=== PATIENT | female | born 1930 | race Caucasian/White ===

== ENCOUNTER → 2016-08-10 | Outpatient (CLI) | payer MEDICARE ==
[~2016-08-10] MED LIST: ACETAMINOPHEN PO; ALBUTEROL17 GM INH; ANTACID650 MG PO; AZATHIOPRINE50 M1 PO; BENZONATATE PO; CALCIUM + VITAM1 TAB PO; CALCIUM1 TAB.CHEW; CLEOCIN HCL300 M1 PO; FERRO-TIME325 MG PO; FOLIC ACID PO; FOLIC ACID1 MG; HYDROCHLOROTH12.5 M1 PO; LEVAQUIN750 MG PO; LISINOPRIL PO; LISINOPRIL10 MG PO; MULTI-VITAMIN1 EAC1; MULTIPLE VITAMI1 T11 PO; NAMENDA10 MG; PANTOPRAZOLE SO40 MG PO; PLAQUENIL200 MG PO; PREDNISONE PO; PREMARIN PO; SODIUM BICARBO650 MG PO; TRAMADOL HCL50 M2 PO; TYLENOL EXTRA500 M1 PO; TYLENOL325 M1 PO; ZITHROMAX PO; ZITHROMAX1 G/PKT PO; ZOFRANODT PO
[2016-08-10 16:00] LABS: HEMATOCRIT 32.9 % (35.0-45.0); HEMOGLOBIN 11.1 gm/dL (12.0-16.0); MEAN CELL VOLUME 98.9 FL (83-96); MEAN CORPUSCULAR HEMOGLOBIN 33.4 PG (28-34); MEAN CORPUSCULAR HGB CONC 33.8 g/dL (30-36); MEAN PLATELET VOLUME 8.1 FL (6.5-11.5); RED BLOOD COUNT 3.32 X10e (3.90-5.30); RED CELL DISTRIBUTION WIDTH 13.9 % (11.0-15.5); WHITE BLOOD COUNT 6.1 X10e3 (4.0-10.5)
[2016-08-10 16:13] LABS: BILIRUBIN,TOTAL 0.6 mg/dL (0.2-2.0); BUN/CREATININE RATIO 27.5; CALCIUM SERUM 8.5 mg/dL (8.4-10.2); CREATININE SERUM 1.2 mg/dL (0.6-1.4); GLOM FILT RATE Estimated 41.8 mL/min (>60); MAGNESIUM 2.1 mg/dL (1.6-3.0); PHOSPHOROUS 4.1 mg/dL (2.5-4.6); POTASSIUM 4.6 mmol/L (3.5-5.1); PROTEIN TOTAL SERUM 6.8 g/dL (6.0-8.3)
[2016-08-11 00:09] LABS: CREATININE,RANDOM URINE 197 mg/dL; TOTAL PROTEIN,RANDOM URINE 25 mg/dl (<10)
[2016-08-13 12:16] LABS: CALCIUM (PTHINTACT) 9.2 mg/dL (8.6-10.4)
== END | disposition home or self-care (01) ==
LOC: SLAB 15:23
PROVIDERS: Internal Medicine Nephrology
DX: N18.3 Chronic kidney disease, stage 3 (moderate) (principal); D63.1 Anemia in chronic kidney disease
CPT/HCPCS: 36415; 80053; 82310; 82570; 82728; 83540; 83550; 83735; 83970; 84100; 84156; 85027

== ENCOUNTER → 2016-11-18 | Outpatient (CLI) | payer MEDICARE ==
[2016-11-18 13:58] LABS: HEMATOCRIT 31.3 % (35.0-45.0); HEMOGLOBIN 10.6 gm/dL (12.0-16.0); MEAN CELL VOLUME 98.6 FL (83-96); MEAN CORPUSCULAR HEMOGLOBIN 33.3 PG (28-34); MEAN CORPUSCULAR HGB CONC 33.8 g/dL (30-36); MEAN PLATELET VOLUME 7.6 FL (6.5-11.5); RED BLOOD COUNT 3.17 X10e (3.90-5.30); WHITE BLOOD COUNT 6.9 X10e3 (4.0-10.5)
[2016-11-18 14:50] LABS: ALBUMIN SERUM 3.9 g/dL (3.5-5.0); BILIRUBIN,TOTAL 0.5 mg/dL (0.2-2.0); BUN/CREATININE RATIO 25.83; CALCIUM SERUM 8.5 mg/dL (8.4-10.2); CREATININE SERUM 1.2 mg/dL (0.6-1.4); GLOM FILT RATE Estimated 41.5 mL/min (>60); MAGNESIUM 2.1 mg/dL (1.6-3.0); PHOSPHOROUS 3.6 mg/dL (2.5-4.6); POTASSIUM 4.5 mmol/L (3.5-5.1); PROTEIN TOTAL SERUM 6.3 g/dL (6.0-8.3)
[2016-11-18 15:58] LABS: CREATININE,RANDOM URINE 192 mg/dL; TOTAL PROTEIN,RANDOM URINE 23 mg/dl (<10)
[2016-11-24 00:56] LABS: ANA SCREEN Positive (Negative); ANA TITER (ANA) 1:40 (Negative); ANA TITER COMMENT Has been added (()); CALCIUM (PTHINTACT) 9.1 mg/dL (8.6-10.4); MYELOPEROXIDASE AB (PNL) <1.0 AI (<1.0); NUCLEAR PATTERN (ANA) Homogeneous (()); PROTEINASE-3 AB (PNL) <1.0 AI (<1.0)
== END | disposition home or self-care (01) ==
LOC: SLAB 13:31
PROVIDERS: Internal Medicine Nephrology
DX: N18.3 Chronic kidney disease, stage 3 (moderate) (principal)
CPT/HCPCS: 36415; 80053; 82310; 82570; 83735; 83970; 84100; 84156; 85027; 86021; 86038; 86039